=== PATIENT | female | born 1940 | race Caucasian/White ===

== ENCOUNTER 2024-11-27 14:42 | Outpatient (RCR) | payer MEDICARE, OTHER | END 2024-11-28 | LOC: PT 14:42 | PROVIDERS: ATTEND Otolaryngology | DX: R42 Dizziness and giddiness (principal) ==

== ENCOUNTER 2024-12-20 11:00 | Outpatient (RCR) | payer MEDICARE, OTHER | END 2024-12-29 | LOC: PT 11:00 | PROVIDERS: ATTEND Otolaryngology | DX: R42 Dizziness and giddiness (principal) ==